=== PATIENT | male | born 1940 | race Caucasian/White ===

== ENCOUNTER → 2019-11-23 12:54 | Outpatient (BNVA) | payer MEDICARE, OTHER, SELFPAY | PROVIDERS: Family Provider Family Medicine; PCP Family Medicine; Visit Provider Family Medicine | DX: I11.0 Hypertensive heart disease with heart failure (principal); F41.1 Generalized anxiety disorder; E87.1 Hypo-osmolality and hyponatremia; R74.8 Abnormal levels of other serum enzymes | CPT/HCPCS: 80048 ==

== ENCOUNTER → 2019-12-22 11:56 | Outpatient (BNVA) | payer MEDICARE, OTHER, SELFPAY | PROVIDERS: Family Provider Family Medicine; PCP Family Medicine; Visit Provider Family Medicine | DX: E87.1 Hypo-osmolality and hyponatremia (principal); R74.8 Abnormal levels of other serum enzymes; I10 Essential (primary) hypertension; F41.1 Generalized anxiety disorder | CPT/HCPCS: 80048; 85025 ==

== ENCOUNTER → 2020-01-04 13:17 | Outpatient (BNVA) | payer MEDICARE, OTHER, SELFPAY | PROVIDERS: Family Provider Family Medicine; PCP Family Medicine; Visit Provider Urology | DX: C61 Malignant neoplasm of prostate (principal) | CPT/HCPCS: 81001; 84153 ==

== ENCOUNTER 2020-01-17 09:44 | Outpatient (CLI) | payer MEDICARE, OTHER, SELFPAY ==
--- NOTE | 2020-01-17 09:48 | USCV_ITS ---
BoykinSabino Age: 79 Gender: M : 1940 Exam Date: 01/17/2020 09:13 Ordering Phys: Gabriella Mike MD [email or web address]) Technologist: Machelle Way Exam Location: [facility] [place] Indication: AI BP: 150 / 82 HR: 63 Rhythm: Sinus Technical Quality: Good MEASUREMENTS (Male / Female) Normal Values 2D ECHO LV Diastolic Diameter PLAX 4.6 cm 4.2 - 5.9 / 3.9 - 5.3 cm LV Systolic Diameter PLAX 3.0 cm IVS Diastolic Thickness 0.9 cm 0.6 - 1.0 / 0.6 - 0.9 cm IVS Systolic Thickness 1.5 cm LVPW Diastolic Thickness 1.1 cm 0.6 - 1.0 / 0.6 - 0.9 cm LVPW Systolic Thickness 1.8 cm LVOT Diameter 2.0 cm LV Ejection Fraction 2D Teich 63.8 % LV Ejection Fraction MOD 2C 72.7 % LV Ejection Fraction 2C AL 73.7 % LA Diameter 3.1 cm LA Width 2.7 cm LA Height 4.6 cm RA Width 3.0 cm RA Height 3.7 cm M-MODE LV Diastolic Diameter MM 5.1 cm 4.2 - 5.9 / 3.9 - 5.3 cm LV Systolic Diameter MM 3.1 cm LV Ejection Fraction MM Teich 70.2 % IVS Diastolic Thickness MM 0.8 cm 0.6 - 1.0 / 0.6 - 0.9 cm IVS Systolic Thickness MM 1.3 cm LVPW Diastolic Thickness MM 0.8 cm 0.6 - 1.0 / 0.6 - 0.9 cm LVPW Systolic Thickness MM 1.8 cm RV Diastolic Diameter MM 2.1 cm Aortic Annulus Diameter 3.5 cm LA Ao Ratio MM 0.9 MV E Point Septal Separation 0.2 cm DOPPLER AV Peak Velocity 125.0 cm/s LVOT Peak Velocity 86.0 cm/s AV Area Cont Eq vti 2.4 cm squared AV Area Cont Eq pk 2.3 cm squared MV E' Velocity 7.0 cm/s TR Peak Velocity 232.6 cm/s TR Peak Gradient 21.6 mmHg TR Mean Velocity 190.8 cm/s TR Mean Gradient 15.6 mmHg TR Velocity Time Integral 91.4 cm TV Peak E Velocity 51.0 cm/s Right Atrial Pressure 3.0 mmHg Pulmonary Artery Systolic Pressu 24.6 mmHg PV Peak Velocity 54.0 cm/s FINDINGS Left Ventricle Normal left ventricular size, systolic function and wall thickness, with no regional wall motion abnormalities. Left ventricular ejection fraction is estimated at 70%. Normal diastolic function. Right Ventricle Normal right ventricular size and systolic function. Right ventricular systolic pressure 24.6 mmHg. Right Atrium Normal right atrial size. Right atrial pressure estimated at 3 mmHg. Left Atrium Normal left atrial size. Mitral Valve Structurally normal mitral valve. Mild to moderate mitral valve regurgitation. Aortic Valve Mildly thickened trileaflet aortic valve. No aortic valve stenosis. Moderate aortic valve regurgitation. Tricuspid Valve Structurally normal tricuspid valve. Trace tricuspid valve regurgitation. Pulmonic Valve Pulmonic valve not well visualized. Trace pulmonary valve regurgitation. Pericardium No pericardial effusion. Aorta Normal size aortic root and proximal ascending aorta. Plaque noted in ascending aorta. CONCLUSIONS 1. Normal left ventricular size, systolic function and wall thickness, with no regional wall motion abnormalities. Left ventricular ejection fraction is estimated at 70%. Normal diastolic function. 2. Normal right ventricular size and systolic function. 3. Right atrial pressure estimated at 3 mmHg. 4. Mild to moderate mitral valve regurgitation. 5. Moderate aortic valve regurgitation. 6. Pulmonary artery pressure estimated at 25 mmHg. 7. No prior similar studies to compare. Gabriella Mike MD (Electronically Signed) Final Date: 17 January 2020 16:35 S
== END 2020-01-17 09:45 | disposition home or self-care (01) ==
LOC: US 09:46
PROVIDERS: Family Provider Family Medicine; PCP Family Medicine; Visit Provider Internal Medicine Cardiovascular Disease
DX: M79.602 Pain in left arm (principal); R07.81 Pleurodynia
CPT/HCPCS: 93306; C8929

== ENCOUNTER → 2020-01-25 11:02 | Outpatient (BNVA) | payer MEDICARE, OTHER, SELFPAY | PROVIDERS: Family Provider Family Medicine; PCP Family Medicine; Referring Provider Internal Medicine; Visit Provider Internal Medicine | DX: R74.8 Abnormal levels of other serum enzymes (principal); E87.1 Hypo-osmolality and hyponatremia; C61 Malignant neoplasm of prostate | CPT/HCPCS: 80053; 80061; 82533; 82570; 83930; 83935; 84156; 84300; 84439; 84443 ==

== ENCOUNTER 2020-02-03 15:21 | Outpatient (CLI) | payer MEDICARE, OTHER, SELFPAY ==
--- NOTE | 2020-02-03 15:25 | US_ITS ---
WS: [id number] RENAL ULTRASOUND REASON FOR EXAM: CHRONIC KIDNEY DISEASE STAGE 3 TECHNIQUE: Grayscale and Doppler ultrasound examination of the kidneys. FINDINGS: Right kidney: Right kidney measures 9.1 cm x 6.0 cm x 4.8 cm. Cortex measured 1.15 cm. Normal echotex ture present. Left kidney: Left kidney measures 9.5 cm x 5.1 cm x 6.0 cm. Cortex measured 1.20. In the left kidney is a density suggesting a solid lesion measured 3.68 x 2.70 x 2.86 cm. The urinary bladder was not fully distended but showed no gross abnormalities. US/US renal BI* [id number] IMPRESSION: The left kidney suggests a questionable mass defect which appears to be solid t his could represent a hump on the kidney but follow-up's with CT with contrast recommended.
== END 2020-02-03 15:22 | disposition home or self-care (01) ==
LOC: US 15:21
PROVIDERS: Family Provider Family Medicine; PCP Family Medicine; Visit Provider Internal Medicine
DX: N18.3 Chronic kidney disease, stage 3 (moderate) (principal)
CPT/HCPCS: 76770

== ENCOUNTER 2020-03-21 09:27 | Outpatient (CLI) | payer MEDICARE, OTHER, SELFPAY ==
--- NOTE | 2020-03-21 09:39 | CT_ITS ---
WS: [id number] CT ABDOMEN PELVIS TECHNIQUE: Noncontrast CT of the abdomen and pelvis with coronal and sagittal reformatted images. CLINICAL INFORMATION: LEFT RENAL MASS VS HUMP COMPARISON: Renal ultrasound February 03, 2020 DLP: 706.[address] scans at [facility] use at least one of these dose optimization techniques: automat ed exposure control; mA and/or kV adjustment per patient size (includes targeted exams where dose is matched to clinical indication); or iterative reconstruction. FINDINGS: Mild cortical atrophy bilateral noncontrast kidneys. No visualized left renal mass. Slight lobulation upper pole left kidney. No renal mass considering lack of IV contrast. No hydronephrosis. Multiple low-attenuation lesions in the right and left hepatic lobe the largest in the right hepatic lobe measuring 4.3 x 3.4 cm consistent with hepatic cysts. Gallbladder is contracted but otherwise no rmal in appearance. Noncontrast spleen is normal. A few tiny splenules. Fatty atrophy of the pancreas . Small esophageal hiatal hernia. Mild thickening in the distal esophagus at the GE junction can be s een with esophagitis. Neoplasia not entirely excluded. Recommend further evaluation with endoscopy. L melvin bases are well aerated. Normal caliber abdominal aorta. Aortic calcification. Sigmoid diverticulosis. Urine distended bladder . Enlarged prostate with nodularity. Prostate measures 4.6 x 4.9 cm. No abdominal or pelvic lymphaden opathy. No inguinal lymphadenopathy. CT/CT abdomen pelvis wo con [id number] IMPRESSION: 1. No evidence of left renal mass. 2. Mild lobulation upper pole left kidney. No hydronephrosis in either kidney. Mild renal cortical atrophy. 3. Multiple hepatic cysts the largest in the right hepatic lobe measuring 3.4 x 4.3 CM. 4. Mild circumferential thickening at the GE junction with small esophageal hi atal hernia. This can be seen with esophagitis but neoplasia not excluded. Lawrence mmend endoscopy for further evaluation. 5. Normal caliber abdominal aorta. 6. Enlarged prostate. Recommend correlation PSA. 7. Sigmoid diverticulosis.
== END 2020-03-21 09:28 | disposition home or self-care (01) ==
LOC: RAD 09:30
PROVIDERS: Family Provider Family Medicine; PCP Family Medicine; Visit Provider Nurse Practitioner Family
DX: N28.89 Other specified disorders of kidney and ureter (principal); K76.89 Other specified diseases of liver; K44.9 Diaphragmatic hernia without obstruction or gangrene; N40.0 Benign prostatic hyperplasia without lower urinary tract symptoms; K57.30 Diverticulosis of large intestine without perforation or abscess without bleeding
CPT/HCPCS: 74176

== ENCOUNTER → 2020-05-08 10:15 | Outpatient (BNVA) | payer MEDICARE, OTHER, SELFPAY | PROVIDERS: Family Provider Family Medicine; PCP Family Medicine; Visit Provider Internal Medicine | DX: N18.3 Chronic kidney disease, stage 3 (moderate) (principal) | CPT/HCPCS: 80069; 82306; 82570; 84156; 85025 ==

== ENCOUNTER → 2020-05-21 10:18 | Outpatient (BNVA) | payer MEDICARE, OTHER, SELFPAY | PROVIDERS: Family Provider Family Medicine; PCP Family Medicine; Visit Provider Family Medicine | DX: I10 Essential (primary) hypertension (principal); E03.9 Hypothyroidism, unspecified; G25.0 Essential tremor; M19.90 Unspecified osteoarthritis, unspecified site; F41.1 Generalized anxiety disorder; R74.8 Abnormal levels of other serum enzymes; C61 Malignant neoplasm of prostate; E87.1 Hypo-osmolality and hyponatremia | CPT/HCPCS: 83935; 84300 ==

== ENCOUNTER → 2020-06-07 11:57 | Outpatient (BNVA) | payer MEDICARE, OTHER, SELFPAY | PROVIDERS: Family Provider Family Medicine; PCP Family Medicine; Referring Provider Nurse Practitioner Family; Visit Provider Nurse Practitioner Family | DX: N18.3 Chronic kidney disease, stage 3 (moderate) (principal) | CPT/HCPCS: 80048; 82533; 83930; 84300; 84439; 84443 ==

== ENCOUNTER → 2020-06-18 10:25 | Outpatient (BNVA) | payer MEDICARE, OTHER, SELFPAY | PROVIDERS: Family Provider Family Medicine; PCP Family Medicine; Visit Provider Internal Medicine | DX: N18.3 Chronic kidney disease, stage 3 (moderate) (principal) | CPT/HCPCS: 80048 ==

== ENCOUNTER → 2020-06-25 10:10 | Outpatient (BNVA) | payer MEDICARE, OTHER, SELFPAY | PROVIDERS: PCP Family Medicine; Referring Provider Internal Medicine; Visit Provider Internal Medicine | DX: N18.3 Chronic kidney disease, stage 3 (moderate) (principal) | CPT/HCPCS: 80048 ==

== ENCOUNTER → 2020-07-16 10:12 | Outpatient (BNVA) | payer MEDICARE, OTHER, SELFPAY | PROVIDERS: PCP Family Medicine; Referring Provider Internal Medicine; Visit Provider Internal Medicine | DX: N18.3 Chronic kidney disease, stage 3 (moderate) (principal) | CPT/HCPCS: 80048 ==

== ENCOUNTER → 2020-07-18 09:01 | Outpatient (BNVA) | payer MEDICARE, OTHER, SELFPAY | PROVIDERS: PCP Family Medicine; Visit Provider Urology | DX: C61 Malignant neoplasm of prostate (principal); N20.1 Calculus of ureter; N40.1 Benign prostatic hyperplasia with lower urinary tract symptoms | CPT/HCPCS: 81001; 84153 ==

== ENCOUNTER → 2020-10-16 11:05 | Outpatient (BNVA) | payer MEDICARE, OTHER, SELFPAY | PROVIDERS: Family Provider Family Medicine; PCP Family Medicine; Referring Provider Internal Medicine; Visit Provider Internal Medicine | DX: N18.30 Chronic kidney disease, stage 3 unspecified (principal); I10 Essential (primary) hypertension; E03.9 Hypothyroidism, unspecified; I25.10 Atherosclerotic heart disease of native coronary artery without angina pectoris | CPT/HCPCS: 80069; 82043; 82306; 82310; 83970; 85025 ==

== ENCOUNTER → 2020-11-04 17:00 | Outpatient (BNVA) | payer MEDICARE, OTHER, SELFPAY | PROVIDERS: Family Provider Family Medicine; PCP Family Medicine; Visit Provider Emergency Medicine | DX: Z20.828 Contact with and (suspected) exposure to other viral communicable diseases (principal) | CPT/HCPCS: 87635 ==

== ENCOUNTER → 2021-01-07 09:13 | Outpatient (BNVA) | payer MEDICARE, SELFPAY | PROVIDERS: Family Provider Family Medicine; PCP Family Medicine; Referring Provider Internal Medicine; Visit Provider Internal Medicine | DX: E03.9 Hypothyroidism, unspecified (principal); N18.31 Chronic kidney disease, stage 3a; Z79.899 Other long term (current) drug therapy | CPT/HCPCS: 80048; 83930; 83935; 84300; 84443 ==

== ENCOUNTER → 2021-01-16 10:20 | Outpatient (BNVA) | payer MEDICARE, SELFPAY | PROVIDERS: Family Provider Family Medicine; PCP Family Medicine; Visit Provider Urology | DX: N40.1 Benign prostatic hyperplasia with lower urinary tract symptoms (principal); C61 Malignant neoplasm of prostate | CPT/HCPCS: 81003; 84153 ==

== ENCOUNTER → 2021-02-13 10:15 | Outpatient (BNVA) | payer MEDICARE, SELFPAY | PROVIDERS: Family Provider Family Medicine; PCP Family Medicine; Visit Provider Family Medicine | DX: L25.9 Unspecified contact dermatitis, unspecified cause (principal); N18.30 Chronic kidney disease, stage 3 unspecified | CPT/HCPCS: 80053; 85025; 85651; 86038; 86140 ==

== ENCOUNTER → 2021-04-29 08:50 | Outpatient (BNVA) | payer MEDICARE, SELFPAY | PROVIDERS: Family Provider Family Medicine; PCP Family Medicine; Referring Provider Surgery; Visit Provider Surgery | DX: R13.10 Dysphagia, unspecified (principal); Z20.822 Contact with and (suspected) exposure to COVID-19 | CPT/HCPCS: 87635 ==

== ENCOUNTER 2021-05-02 08:17 | Day surgery (SDC) | payer MEDICARE, SELFPAY ==
[2021-04-30 14:31] VITALS: BMI 25.8
--- NOTE | 2021-05-02 08:48 | ANES.PREANE2 ---
Pre-Anesthetic Assessment Pre-Anesthetic Assessment: Height/Weight: Height 1.78 m Weight 81.647 kg Preop Diagnosis: upper gi symptoms Proposed Procedure: Operation Date: 05/02/21 09:30 Proposed Procedures p EGD with baloon dialation possible bougie [id number] r13.10(Not Applicable) - Burton Pringle MD Was Beta Sienna taken within 24 hours: Yes Was Clonidine taken within 24 hours: N/A Social: Social History: No alcohol and No tobacco Exam: Pre-Anes Outpt Exam: alert, oriented x 3 and regular rate & rhythm Airway: Submandibular: WNL Cervical ROM: WNL MP: 2 Dentition: False Pulmonary: Pulmonary: COPD and Sleep apnea CV/HEM: CV/HEM: CAD and HTN Comments: AI GI: GI: GERD Neuropsych: Neuropsych: Anxiety Anesthetic Plan: ASA status: 3 Anesthesia: MAC Risk of > 500 ml blood loss (7ml/kg in children): No PFSH Anesthesia PFSH: Medical History Aortic regurgitation Arthritis BPH loc w urin obs/LUTS CAD (coronary artery disease) STATIN intolerance Chronic kidney disease, stage 3 (moderate) Constipation, chronic COPD (chronic obstructive pulmonary disease) COVID-19 Essential tremor MAURICIO (generalized anxiety disorder) Off fluoxetine due to low Na Hyponatremia Hypothyroidism DIAN (obstructive sleep apnea) Prostate cancer Restless leg syndrome Statin intolerance Itchy RASH Surgical History History of colonoscopy 2016 S/P cataract surgery S/P inguinal hernia repair S/P partial thyroidectomy S/P rotator cuff repair S/P sinus surgery Family History Father Cancer PROSTATE Mother Chronic kidney disease (CKD) Cirrhosis of liver Heart failure Social History Smoking and tobacco status: never smoked Second hand smoke exposure: No Smoking risk assessment/counseling performed?: No Alcohol intake: never Desire information about alcohol rehabilitation?: No Counseling given: No Desire information about substance/drug rehabilitation?: No Counseling given: No Caregiver/support person: Yes Lives independently: No Household members: spouse Marital status: Current occupational status: retired History of recent travel: No Current gender identity: Male Data Anesthesia Cardiac Studies: No Data to Display
--- NOTE | 2021-05-02 09:31 | W.PM.OPSUD ---
Surgery/Procedure H&P Update DATE OF PROCEDURE: May 02, 2021 DATE H&P PERFORMED: 04/26/21 H&P UPDATE INFORMATION: I have reviewed H&P completed within last 30 days, I have examined patient prior to procedure and No changes to prior documentation PREOP DIAGNOSIS: upper gi symptoms PLANNED PROCEDURE: Operation Date: 05/02/21 09:30 Proposed Procedures p EGD with baloon dialation possible marsha [id number] r13.10(Not Applicable) - Burton Pringle MD
[2021-05-02 09:37] VITALS: BP 148/85; PULSE 70; RESP 18; TEMP 36.9; O2SAT 98
[2021-05-02] MEDS: sodium chloride 0.9% 1,000 ML 30 ML IV (09:38)
[2021-05-02 09:54] VITALS: BP 104/60; PULSE 70; RESP 16; TEMP 36.3; O2SAT 94
[2021-05-02 10:05] VITALS: BP 113/69; PULSE 65; RESP 16; O2SAT 98
--- NOTE | 2021-05-02 13:39 | ANE.PACU2 ---
Inpatient post-anesthesia follow up: Airway intact: Yes Vital signs: Temperature 97.4 F Pulse Rate 65 Respiratory Rate 16 Blood Pressure 113/69 Pulse Oximetry 98 Oxygen Delivery Me thod Room Air Oxygen Flow Rate Fraction of Inspir ed Oxygen Hydration adequate: Yes Nausea and vomiting: No Pain level: 1 Mental status: Baseline
== END 2021-05-02 10:32 | disposition home or self-care (01) ==
PROVIDERS: PCP Family Medicine; Visit Provider Surgery
DX: R13.10 Dysphagia, unspecified (principal); K22.2 Esophageal obstruction; K44.9 Diaphragmatic hernia without obstruction or gangrene; J44.9 Chronic obstructive pulmonary disease, unspecified; I12.9 Hypertensive chronic kidney disease with stage 1 through stage 4 chronic kidney disease, or unspecified chronic kidney disease; N18.30 Chronic kidney disease, stage 3 unspecified; I25.10 Atherosclerotic heart disease of native coronary artery without angina pectoris; F41.9 Anxiety disorder, unspecified; M19.90 Unspecified osteoarthritis, unspecified site; N40.1 Benign prostatic hyperplasia with lower urinary tract symptoms; N13.8 Other obstructive and reflux uropathy; Z86.16 Personal history of COVID-19; E03.9 Hypothyroidism, unspecified; G47.33 Obstructive sleep apnea (adult) (pediatric); Z85.46 Personal history of malignant neoplasm of prostate
CPT/HCPCS: 43195; 43239; 88305; 96360; J2704; J7030

== ENCOUNTER → 2021-06-27 11:53 | Outpatient (BNVA) | payer MEDICARE, SELFPAY | PROVIDERS: PCP Family Medicine; Visit Provider Family Medicine | DX: I10 Essential (primary) hypertension (principal); I50.9 Heart failure, unspecified; I25.10 Atherosclerotic heart disease of native coronary artery without angina pectoris | CPT/HCPCS: 80053; 80061; 83735; 83880; 85025 ==

== ENCOUNTER → 2021-07-23 08:36 | Outpatient (BNVA) | payer MEDICARE, SELFPAY | PROVIDERS: PCP Family Medicine; Visit Provider Urology | DX: N40.1 Benign prostatic hyperplasia with lower urinary tract symptoms (principal); C61 Malignant neoplasm of prostate; Z12.5 Encounter for screening for malignant neoplasm of prostate | CPT/HCPCS: 81003; G0103 ==

== ENCOUNTER → 2021-07-25 11:04 | Outpatient (BNVA) | payer MEDICARE, SELFPAY | PROVIDERS: PCP Family Medicine; Visit Provider Family Medicine | DX: I50.9 Heart failure, unspecified (principal); I10 Essential (primary) hypertension; E03.9 Hypothyroidism, unspecified; N18.31 Chronic kidney disease, stage 3a; S90.222A Contusion of left lesser toe(s) with damage to nail, initial encounter; B35.1 Tinea unguium | CPT/HCPCS: 80048; 84443 ==

== ENCOUNTER → 2021-08-20 10:48 | Outpatient (BNVA) | payer MEDICARE, SELFPAY | PROVIDERS: PCP Family Medicine; Visit Provider Internal Medicine Cardiovascular Disease | DX: I10 Essential (primary) hypertension (principal); I50.9 Heart failure, unspecified; I35.1 Nonrheumatic aortic (valve) insufficiency; R07.89 Other chest pain; I25.10 Atherosclerotic heart disease of native coronary artery without angina pectoris; E87.1 Hypo-osmolality and hyponatremia; G47.33 Obstructive sleep apnea (adult) (pediatric) | CPT/HCPCS: 80048; 83735; 83880 ==

== ENCOUNTER → 2021-09-18 11:03 | Outpatient (BNVA) | payer MEDICARE, SELFPAY | PROVIDERS: PCP Family Medicine; Visit Provider Family Medicine | DX: N18.31 Chronic kidney disease, stage 3a (principal); J44.9 Chronic obstructive pulmonary disease, unspecified | CPT/HCPCS: 80053; 85025 ==

== ENCOUNTER 2021-10-08 08:09 | Outpatient (CLI) | payer MEDICARE, SELFPAY ==
[2021-10-08 08:32] VITALS: BMI 28.8
--- NOTE | 2021-10-08 08:36 | ECG_ITS ---
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 Interpretive Statements NAME OF STUDY: LEXISCAN SESTAMIBI STRESS TEST INDICATION: Chest Pain, congestive heart failure PROCEDURE: At the baseline, the blood pressure was 166/92 mmHg, oxygen saturation 96% with a heart rate of 71 bpm. The electrocardiogram showed normal sinus rhythm, baseline artifact. Nonspecific ST changes. The Lexiscan was infused over a period of 20 seconds. A total of 0.4 milligrams of Lexiscan was infused. The stress phase was continued for a total of 5 minutes. Heart rate at the end of the stress phase was 81 bpm, oxygen saturation 98% with a blood pressure of 126/85 mmHg. The EKG at the peak infusion revealed sinus rhythm with no significant ST-T wave changes. Sestamibi was injected 20 seconds after the Lexiscan infusion. The study was terminated due to protocol completion. Patient developed shortness of breath during Lexiscan infusion that resolved by discharge. Blood pressure at the end of the recovery phase was 143/88 mmHg, oxygen saturation 98% with a heart rate of 80 beats per minute. CONCLUSION: 1. No significant EKG changes with the LexiScan infusion. 2. No LexiScan induced chest pain or cardiac arrhythmia. 3. Normal blood pressure and heart rate response. 4. Sestamibi/sestamibi perfusion scan pending; see separate report. SEND RESULTS TO DR. ELLIE SERNA Electronically Signed On 10-14-2021 13:31:09 REHABILITATION SERVICES COUNSELOR by Gabriella Mike M.D. [id number]
--- NOTE | 2021-10-08 08:37 | NMCV_ITS ---
NM tanna perf SPECT r/s* [id number] Sabino Boykin Age: 80 Gender: M : 1940 Exam Date: 10/08/2021 08:37 Ordering Phys: Gabriella Mike MD ([email or web address]) Technologist: JF Garcia Exam Location: [facility] Indications: CHEST PAIN STRESS TEST Please see separate stress test report in [facility] for full findings IMAGE PROTOCOL Rest/Stress 1 Lexiscan Day Radiopharmaceutical Dose (mCi) Administration Site Administered by Rest: Tc-99m 10.4 IV JF Garcia Sestamibi Stress:Tc-99m 32.6 IV JF Ayala Sestamibi Rest: 08-Oct-2021 60 Discovery 630 Stress: 08-Oct-2021 30 Discovery 630 0.4mg Lexiscan. Images obtained in supine and prone position. SPECT RESULTS Technical Quality: Excellent Raw Data Analysis: Normal Image Corrections: No attenuation or motion correction applied Summed Stress Score: 8 Summed Rest Score: 4 Summed Difference Score: 4 PERFUSION FINDINGS Small sized perfusion abnormality of mid to apical inferior and mid to apical infero-lateral cerna on supine stress images with improved tracer uptake on prone stress images. FUNCTIONAL RESULTS (calculated via Gated SPECT) Stress Image LV EF (%): 74 Stress EDV (mL):77 TID: 1 Stress ESV (mL):20 FUNCTIONAL FINDINGS: The left ventricle is normal in size. Transient Ischemia Dilatation of 1. There is normal left ventricular systolic function. The left ventricular ejection fraction is normal with a value of 74%. There is normal left ventricular wall thickening with no regional wall motion abnormality. Normal end diastolic and end systolic volumes. IMPRESSIONS 1. Small sized perfusion abnormality of mid to apical inferior and mid to apical infero-lateral cerna with improved tracer uptake on prone stress images. 2. This may represent attenuation artifact or old myocardial infaction in right coronary artery territory with minimal marty-infarct ischemia. 3. Overall left ventricular systolic function is normal without regional wall motion abnormalities, LVEF=74%. 4. No prior similar studies to compare. Gabriella Mike MD (Electronically Signed) Final Date: 12 October 2021 17:16 S
[2021-10-08] MEDS: regadenoson 0.4 Mg/5 ml Syringe IVP (10:35)
[2021-10-08 10:49] VITALS: BP 143/88; PULSE 80
== END 2021-10-08 08:10 | disposition home or self-care (01) ==
LOC: CDL 08:11
PROVIDERS: PCP Family Medicine; Visit Provider Internal Medicine Cardiovascular Disease
DX: R07.9 Chest pain, unspecified (principal); I50.9 Heart failure, unspecified
CPT/HCPCS: 78452; 93017; A9500; J2785

== ENCOUNTER → 2021-12-24 10:06 | Outpatient (BNVA) | payer MEDICARE, SELFPAY | PROVIDERS: PCP Family Medicine; Visit Provider Internal Medicine Cardiovascular Disease | DX: R06.02 Shortness of breath (principal); R07.9 Chest pain, unspecified; Z20.822 Contact with and (suspected) exposure to COVID-19; Z01.812 Encounter for preprocedural laboratory examination | CPT/HCPCS: 80048; 85025; 85610; 87635 ==

== ENCOUNTER 2021-12-27 07:38 | Outpatient (CLI) | payer MEDICARE, SELFPAY ==
[2021-12-27] VITALS (11 sets, daily range): BP systolic 105–185; BP diastolic 64–88; PULSE 60–69; RESP 12–21; TEMP 36.7; O2SAT 96–98; BMI 28.8
--- NOTE | 2021-12-27 07:30 | XACV_ITS ---
Exam Room: 2 Ht: 173 cm Wt: 87 kg BSA: 2.06 m2 Gender: Male : 1940 Exam Priority: Routine Procedure(s): Procedure Description: Diagnostic procedure Procedure Description: Coronary Angiography Procedure Description: Pressure Wire Diagnostic Cath Status: Elective Diagnostic Findings * Left Main has no disease. * Circumflex has no disease. * Right Coronary Artery has no disease. * Mid Left Anterior Descending: obstructive 70% stenosis, SARAH: 3 flow. * Coronary angiography shows right dominance. Conclusions 1. I 2. FR: After equalizing the distal and proximal pressure of 3. I 4. FR wire proximal to the lesion, mid L 5. AD 6. lesion was crossed with 7. I 8. FR wire 9. I 10. FR was recorded as 0.92, which is not significant 11. . 12. There is obstructive coronary artery disease with one vessel disease. Recommendations * Continue current medical management and risk factor modification. Diagnostic RX Recommendation: medical therapy and/or counseling Pressures Phase:Rest AO : 103 / 67 ( 85 ) @ 7:03:00 AM 101 / 51 ( 68 ) @ 7:21:00 AM 113 / 61 ( 84 ) @ 7:22:00 AM 119 / 61 ( 86 ) @ 7:27:00 AM Clinical Evaluation EBL: 5mL-10mL Procedural Details Procedure Consent Obtained. Pre-Procedure Time Out. Identified patient by full name and date of as verbalized by the patient/guarantor. Does the consent match the physician's order: Yes. Accurate & Complete Informed Consent: Yes. Inpatient/Outpatient History & Physical on Chart: Yes. Visualize and Verify Site with Patient/Guarantor: N/A. Relevant Radiology Images available: N/A. Pre-op teaching completed and patient verbalized understanding. The risks, benefits, and alternatives of sedation and/or procedure were discussed by physician. The patient agrees to continue. Procedure started. [facility] Clinical Fraility Score: 4: Vulnerable. Glove Turner And Former Indications: Worsening Angina. Chest Pain Symptom Assessment: Atypical Angina. Correct patient, site and procedure confirmed by cath team. Current diagnosis: Chest Pain. PERRLA. Strong, equal hand public policy coordinator bilaterally. Lungs clear x 5 lobes. IV Site on Arrival: 20 gauge in the right anticubital. IV Fluids: 0.9% NaCl at KVO. 0 mL infused prior to landscaping and groundskeeping laborer. Pre Procedural Pulses: bilateral dorsalis pedis was 2+. Pre Procedural Pulses: bilateral posterior tibial was 1+. Pre Procedural Pulses: bilateral radial was 3+. Oxygen started at 2liters/min via nasal canula. bilateral groins was prepped with chloroprep then draped in the usual sterile fashion. Physician notified. Baseline sample Acquired. HR: 72 BPM. Admit Source: Out Patient. Physician arrived. Physician scrubbed in. Immediate Pre-Procedure Time Out. Correct Patient: Yes; Correct Procedure: Yes; Correct Site: Yes; Correct Patient Position: Yes; Correct Supplies: Yes; Dried Flammable Prep: N/A; Blood Products Available: N/A;. Lidocaine 1% infiltrated to the right groin. Arterial access obtained with micropuncture set. A 5 south korean JL4 catheter in over wire. Multiple views taken of left coronary artery. Catheter removed over the standard wire. A 5 south korean JR4 catheter in over wire. Multiple views taken of right coronary artery. Xuan Sanchez RN was relieved by RT Yovani(R) as monitoring person. Multiple views taken of right coronary artery. Catheter removed over the standard wire. 6 south korean JL 3.5 guide catheter was inserted over the wire. Multiple views taken of left coronary artery. IFR guidewire was advanced through the guide catheter to lesion in the mid LAD. Results: 0.92. Wire out. Results checked. Guide catheter out. Lidocaine 1% infiltrated to the right groin. A Angio-Seal VIP (St. Bal) was successful obtaining hemostatsis at the Right Femoral artery insertion site. Post Procedure: Pulses reassessed and unchanged. PERRLA. Strong, equal hand public policy coordinator bilaterally. No VTE prophylaxis required. Medication's Wasted: Lidocaine 1% = 4 mL. Medication's Wasted: Heparin = 1000 units. Total IV fluids: 553 mL. Contrast type used: Visipaque 320 mgI/mL, 500 mL bottle. Complications: None. Estimated blood loss: 5mL-10mL. Responsiveness - Normal response to verbal stimuli; alert and oriented, PERRLA. Airway - Unaffected, no intervention required; spontaneous ventilation. Circulation: W/N/L, pulses unchanged. Nausea/Vomiting: No. Procedure completed. Vital chart was stopped. Patient transferred by stretcher to CPRU. Access Site Site: Right Femoral artery Sheath Size: 6 Fr Hemostasis Method: Angio-Seal VIP (St. Bal) Hemostasis Success: Successful Procedure Medications Start: 8:45 AM Stop: 8:45 AM Medication: Versed Amount: 1 mg Route: I.V. Start: 8:45 AM Stop: 8:45 AM Medication: Fentanyl Amount: 25 mcg Route: I.V. Start: 8:45 AM Stop: 8:45 AM Medication: 0.9% Saline Amount: 500 ml Route: I.V. bolus Start: 8:47 AM Stop: 8:47 AM Medication: Versed Amount: 1 mg Route: I.V. Start: 8:47 AM Stop: 8:47 AM Medication: Fentanyl Amount: 25 mcg Route: I.V. Start: 9:19 AM Stop: 9:19 AM Medication: Fentanyl Amount: 25 mcg Route: I.V. Start: 9:21 AM Stop: 9:21 AM Medication: Heparin Amount: 5000 units Route: I.V. Start: 9:29 AM Stop: 9:29 AM Medication: Fentanyl Amount: 25 mcg Route: I.V. I, the attending physician, have reviewed and verified all procedure medications. Yes, all medications given per verbal order History/Risk Factors Hypertension: Yes Dyslipidemia: Yes Peripheral Arterial Disease (PAD): No Myocardial Infarction (MA): No Obesity: No Renal Disease: Yes Tobacco Use: Never Prior Interventions PCI: No CABG: No Valve Surgery: No Report Signatures Finalized by Patrick Sim MD on 01/04/2022 03:08 PM
[2021-12-27] MEDS: diphenhydrAMINE 50 mg Capsule PO (08:05)
--- NOTE | 2021-12-27 08:48 | W.PM.OPSUD ---
Surgery/Procedure H&P Update DATE OF PROCEDURE: December 27, 2021 DATE H&P PERFORMED: 12/27/21 CHANGES TO PREVIOUS DOCUMENTATION: None PREOP DIAGNOSIS: upper gi symptoms PRIMARY INDICATION FOR PROCEDURE: Worsening of chest pressure with shortness of breath despite of optimization of medicine, abnormal stress test PLANNED PROCEDURE: Operation Date: 12/27/21 08:30 Proposed Procedures p Cardiac Catheterization(Left) - Patrick Sim MD PATIENT REASSESSED PRIOR TO SEDATION, WITH NO CHANGE NOTED: Yes PHYSICAL EXAM: alert, oriented x 3, clear to auscultation bilaterally and operative site marked ADDITIONAL INFORMATION: All risk benefit and alternative for the procedure has been explained to the patient. He understand risk for stroke major minor bleed urgent emergent bypass surgery. He is a candidate for DAPT.
--- NOTE | 2021-12-27 09:57 | W.PM.OPSFHP ---
Same Day Surgery H&P Indication for Procedure/HPI DATE OF PROCEDURE: December 27, 2021 CHIEF COMPLAINT/INDICATIONFOR SURGICAL PROCEDURE: Worsening of angina with chest pressure and abnormal stress test PREOP DIAGNOSIS: upper gi symptoms PLANNED PROCEDURE: Operation Date: 12/27/21 08:30 Proposed Procedures p Cardiac Catheterization(Left) - Patrick Sim MD 81-year-old male patient of Dr. Mike past medical history significant for chronic kidney disease for worsening of chest pressure shortness of breath prior history of nonobstructive coronary artery disease and abnormal stress test despite of optimization of medicine continues to have symptoms therefore he was recommended for angiogram. Patient has baseline chronic kidney disease stage III, he has been given IV fluid 500 mL before the procedure. Our plan is to minimize contrast and continue IV fluid. Patient understand risk for contrast-induced nephropathy stroke major minor bleed urgent emergent bypass surgery. He would like to proceed with it. Medications/Allergies* Home Medications Medication Instructions Recorded Confirmed Type fluticasone propionate 50 1 spray INTRANASAL BID 11/23/19 12/27/21 History mcg/actuation nasal spray,suspension (Allergy Relief (fluticasone)) lactobacillus combination no.8 3 3,000 mmu cells PO DAILY 01/04/20 12/27/21 History billion cell capsule (Adult Probiotic) [facility] 1 tab PO DAILY 02/22/21 12/27/21 History Allergies/Adverse Reactions Allergy/AdvReac Type Severity Reaction Status Date / Time hydrochlorothiazide Allergy Unknown Verified 12/27/21 08:00 lisinopril Allergy Unknown Verified 12/27/21 08:00 Penicillins Allergy Unknown Verified 12/27/21 08:00 Current Medications: Generic Name Dose Route Start Last Admin Trade Name Freq PRN Reason Stop Dose Admin Sodium Chloride 1,000 mls @ 50 mls/hr 12/27/21 07:30 12/27/21 08:06 Sodium Chloride 0.9% IV 12/28/21 03:29 Not Given .Q20H ONE Pertinent History/Comorbid Conditions* Medical History (Updated 11/21/21 @ 14:48 by Gabriella Mike MD) Abnormal nuclear stress test Aortic regurgitation Arthritis BPH loc w urin obs/LUTS CAD (coronary artery disease) STATIN intolerance Chronic kidney disease, stage 3 (moderate) We will refer to nephrology if worsens. Constipation, chronic COPD (chronic obstructive pulmonary disease) COVID-19 Esophageal stricture Essential tremor MAURICIO (generalized anxiety disorder) Off fluoxetine due to low Na Hyponatremia Hypothyroidism DIAN (obstructive sleep apnea) Prostate cancer Restless leg syndrome Statin intolerance Itchy RASH Surgical History (Updated 05/02/21 @ 09:59 by Burton Pringle MD) H/O esophagogastroduodenoscopy (05/02/21) History of colonoscopy 2015 S/P cataract surgery S/P dilatation of esophageal stricture (05/02/21) S/P inguinal hernia repair S/P partial thyroidectomy S/P rotator cuff repair S/P sinus surgery Family History (Updated 11/23/19 @ 10:15 by Hailey John LPN) Father Heart failure Mother Cirrhosis of liver Mother Chronic kidney disease (CKD) Mother Cancer Father PROSTATE Social History Smoking and tobacco status: never smoked Second hand smoke exposure: No Smoking risk assessment/counseling performed?: No Alcohol intake: never Desire information about alcohol rehabilitation?: No Counseling given: No Desire information about substance/drug rehabilitation?: No Counseling given: No Caregiver/support person: Yes Lives independently: No Household members: spouse Marital status: Current occupational status: retired History of recent travel: No Current gender identity: Male Pertinent Exam Findings alert, oriented x 3, clear to auscultation bilaterally and operative site marked Recommendations Surgery/Procedure today Other Plans: We will proceed with coronary angiogram Coding Level of Care Code New 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
--- NOTE | 2021-12-27 10:09 | SUR.PHASEII ---
POST CATH NOTE Received patient from cardiac track repair laborer- status post cardiac catheterization via the right femoral approach. Right groin site angio sealed- no hematoma formation/bleeding noted. Site covered with bioclusives and 4/4's. Verbal post cath instructions went over with patient/spouse and they understood teaching. MD in to discuss findings- no questions at this time. Plan to discharge later today. Call light in reach- informed to call for needs.
--- NOTE | 2021-12-27 10:20 | SUR.PHASEII ---
IV NS AT 100 ML/HR PER MD. INFUSING ORDERED.
== END 2021-12-27 13:36 | disposition home or self-care (01) ==
PROVIDERS: PCP Family Medicine; Visit Provider Internal Medicine Cardiovascular Disease
DX: I25.10 Atherosclerotic heart disease of native coronary artery without angina pectoris (principal); R94.39 Abnormal result of other cardiovascular function study; E78.5 Hyperlipidemia, unspecified; I12.9 Hypertensive chronic kidney disease with stage 1 through stage 4 chronic kidney disease, or unspecified chronic kidney disease; N18.30 Chronic kidney disease, stage 3 unspecified; M19.90 Unspecified osteoarthritis, unspecified site; N40.1 Benign prostatic hyperplasia with lower urinary tract symptoms; N13.8 Other obstructive and reflux uropathy; J44.9 Chronic obstructive pulmonary disease, unspecified; Z86.16 Personal history of COVID-19; E03.9 Hypothyroidism, unspecified; G47.33 Obstructive sleep apnea (adult) (pediatric); Z85.46 Personal history of malignant neoplasm of prostate
CPT/HCPCS: 36415; 93454; 93571; C1760; C1769; C1887; C1894; J1644; J2250; J3010; J3490; J7030; Q0163; Q9967

== ENCOUNTER 2021-12-30 13:55 | Outpatient (CLI) | payer MEDICARE, SELFPAY ==
[2021-12-30 15:09] LABS: Anion Gap 16.4 (5-19); Blood Urea Nitrogen 21 mg/dL (8-23); Calcium 8.9 mg/dL (8.5-10.5); Carbon Dioxide 27 mmol/L (22-29); Chloride 100 mmol/L (98-107); Glucose 98 mg/dL (65-115); Osmolality Calculated 291 mOsm/kg (285-295); Potassium 4.4 mmol/L (3.5-5.1); Sodium 139 mmol/L (136-145)
== END 2021-12-30 13:56 | disposition home or self-care (01) ==
PROVIDERS: PCP Family Medicine; Visit Provider Internal Medicine Cardiovascular Disease
DX: I25.10 Atherosclerotic heart disease of native coronary artery without angina pectoris (principal)
CPT/HCPCS: 36415; 80048

== ENCOUNTER 2022-01-02 09:13 | Outpatient (CLI) | payer MEDICARE, SELFPAY ==
--- NOTE | 2022-01-02 | USCV_ITS ---
BoykinSabino Age: 81 Gender: M : 1940 Exam Date: 01/02/2022 09:36 Ordering Phys: Gabriella Mike MD ([email or web address]) Technologist: MERISSA [place] [facility] [place]: Heart Failure BP: 148 / 70 HR: 66 Rhythm: Sinus Technical Quality: Adequate MEASUREMENTS (Male / Female) Normal Values 2D ECHO LV Diastolic Diameter PLAX 4.3 cm 4.2 - 5.9 / 3.9 - 5.3 cm LV Systolic Diameter PLAX 2.5 cm IVS Diastolic Thickness 0.9 cm 0.6 - 1.0 / 0.6 - 0.9 cm IVS Systolic Thickness 1.3 cm LVPW Diastolic Thickness 1.4 cm 0.6 - 1.0 / 0.6 - 0.9 cm LVPW Systolic Thickness 1.1 cm RV Chamber Size 2.5 cm LVOT Diameter 2.0 cm LV Ejection Fraction 2D Teich 72.3 % LV Ejection Fraction MOD 2C 80.3 % LV Ejection Fraction 2C AL 80.3 % LA Diameter 2.9 cm LA Width 2.8 cm LA Height 3.9 cm RA Width 1.8 cm RA Height 4.3 cm Aorta at Sinotubular Diameter 3.0 cm M-MODE Aortic Annulus Diameter 2.9 cm LA Ao Ratio MM 1.0 MV E Point Septal Separation 0.4 cm DOPPLER AV Peak Velocity 109.3 cm/s LVOT Peak Velocity 92.0 cm/s AV Area Cont Eq vti 2.7 cm squared AV Area Cont Eq pk 2.7 cm squared MV Area PHT 4.5 cm squared Mitral E to A Ratio 1.0 MV E' Velocity 38.5 cm/s Mitral E to MV E' Ratio 10.8 Mitral E to LV E' Lateral Ratio 10.4 Mitral E to LV E' Septal Ratio 11.1 TR Peak Velocity 213.0 cm/s TR Peak Gradient 18.1 mmHg TV Peak E Velocity 53.0 cm/s Right Atrial Pressure 3.0 mmHg Pulmonary Artery Systolic Pressu 21.1 mmHg PV Peak Velocity 131.0 cm/s RV Acceleration Time 0.1 s RV Ejection Time 0.3 s RV AcT/ET 0.3 FINDINGS Left Ventricle Normal left ventricular size, systolic function and wall thicknes. Left ventricular ejection fraction is estimated at 65 %. There is mild hypokinesis of mid anteroseptal, apical septal, mid to apical anterior cerna. Normal diastolic function. Right Ventricle Normal right ventricular size and systolic function. Right ventricular systolic pressure 21.1 mmHg. Right Atrium Normal right atrial size. Right atrial pressure estimated at 3 mmHg. Left Atrium Normal left atrial size. Mitral Valve Structurally normal mitral valve. No mitral valve stenosis. Trace mitral valve regurgitation. Aortic Valve Structurally normal trileaflet aortic valve. No aortic valve stenosis. Trace aortic valve regurgitation. Tricuspid Valve Structurally normal tricuspid valve. No tricuspid valve stenosis. Trace to mild tricuspid valve regurgitation. Pulmonic Valve Structurally normal pulmonic valve. No pulmonary valve stenosis. Trace pulmonary valve regurgitation. Pericardium No pericardial effusion. Aorta Normal size aortic root and proximal ascending aorta. Normal- sized inferior vena cava with normal respiratory variation. CONCLUSIONS 1. Normal left ventricular size, systolic function and wall thicknes. Left ventricular ejection fraction is estimated at 65 %. There is mild hypokinesis of mid anteroseptal, apical septal, mid to apical anterior cerna. Normal diastolic function. 2. Normal right ventricular size and systolic function. 3. Trace aortic valve regurgitation. 4. Normal pulmonary artery pressure. 5. When compared to previous echocardiogram dated 01/17/2020, there seems to be new regional wall motion abnormality. Gabriella Mike MD (Electronically Signed) Final Date: 07 January 2022 17:35 S
[2022-01-02] MEDS: perflutren protein-a microsphr 0.22 mg/mL SDV 3 mL IV (10:30)
== END 2022-01-02 09:14 | disposition home or self-care (01) ==
LOC: RAD 09:15
PROVIDERS: PCP Family Medicine; Visit Provider Internal Medicine Cardiovascular Disease
DX: I50.9 Heart failure, unspecified (principal); I35.1 Nonrheumatic aortic (valve) insufficiency
CPT/HCPCS: C8929

== ENCOUNTER → 2022-01-06 11:30 | Outpatient (BNVA) | payer MEDICARE, SELFPAY | PROVIDERS: PCP Family Medicine; Visit Provider Nurse Practitioner Family | DX: I25.10 Atherosclerotic heart disease of native coronary artery without angina pectoris (principal) | CPT/HCPCS: 80048 ==

== ENCOUNTER → 2022-01-07 10:49 | Outpatient (BNVA) | payer MEDICARE, SELFPAY | PROVIDERS: PCP Family Medicine; Visit Provider Family Medicine | DX: I12.9 Hypertensive chronic kidney disease with stage 1 through stage 4 chronic kidney disease, or unspecified chronic kidney disease (principal); N18.31 Chronic kidney disease, stage 3a; R06.02 Shortness of breath; F41.1 Generalized anxiety disorder; I50.9 Heart failure, unspecified; E03.9 Hypothyroidism, unspecified; M19.90 Unspecified osteoarthritis, unspecified site; I25.10 Atherosclerotic heart disease of native coronary artery without angina pectoris; G25.0 Essential tremor; K11.20 Sialoadenitis, unspecified | CPT/HCPCS: 80069; 82043; 82310; 83970; 85025 ==

== ENCOUNTER → 2022-02-11 10:56 | Outpatient (BNVA) | payer MEDICARE, SELFPAY | PROVIDERS: PCP Family Medicine; Visit Provider Internal Medicine Cardiovascular Disease | DX: I25.10 Atherosclerotic heart disease of native coronary artery without angina pectoris (principal); I11.0 Hypertensive heart disease with heart failure; I50.9 Heart failure, unspecified; I35.1 Nonrheumatic aortic (valve) insufficiency; G47.33 Obstructive sleep apnea (adult) (pediatric) | CPT/HCPCS: 99214 ==

== ENCOUNTER 2022-02-20 13:33 | Outpatient (CLI) | payer MEDICARE, SELFPAY ==
[2022-02-20 14:17] LABS: Anion Gap 13.5 (5-19); Blood Urea Nitrogen 28 mg/dL (8-23); Calcium 9.5 mg/dL (8.5-10.5); Carbon Dioxide 29 mmol/L (22-29); Chloride 98 mmol/L (98-107); Glucose 93 mg/dL (65-115); Magnesium 2.1 mg/dL (1.7-2.3); NT Pro B Type Natriuretic Pept 79 pg/mL (0-450); Osmolality Calculated 289 mOsm/kg (285-295); Potassium 3.5 mmol/L (3.5-5.1); Sodium 137 mmol/L (136-145)
== END 2022-02-20 13:34 | disposition home or self-care (01) ==
PROVIDERS: PCP Family Medicine; Visit Provider Internal Medicine Cardiovascular Disease
DX: I10 Essential (primary) hypertension (principal); I25.10 Atherosclerotic heart disease of native coronary artery without angina pectoris; I50.9 Heart failure, unspecified
CPT/HCPCS: 36415; 80048; 83735; 83880

== ENCOUNTER 2022-03-05 10:57 | Outpatient (CLI) | payer MEDICARE, SELFPAY ==
--- NOTE | 2022-03-05 11:45 | US_ITS ---
WS: [id number] ULTRASOUND SOFT TISSUES RIGHT neck. HISTORY: R22.1 - Localized swelling, mass and lump, neck COMPARISON: None available. TECHNIQUE: 2-D and color Doppler imaging is submitted. Ultrasound is directed to the RIGHT neck as per the patient. The parotid gland is normal size. There is a small lymph node within the parotid gland which correlates with the palpable abnormality. There is no increased vascularity. Lymph node measures 1.2 x 0.7 x 0.6 cm. No adjacent edema or fluid. US/US soft tissue head neck [id number] IMPRESSION: Palpable nodule in the RIGHT neck corresponds to an intraparotid lymph node.
== END 2022-03-05 10:58 | disposition home or self-care (01) ==
LOC: RAD 10:59
PROVIDERS: PCP Family Medicine; Visit Provider Family Medicine
DX: R22.1 Localized swelling, mass and lump, neck (principal)
CPT/HCPCS: 76536

== ENCOUNTER 2022-04-22 09:54 | Outpatient (CLI) | payer MEDICARE, SELFPAY | END 2022-04-22 09:55 | disposition home or self-care (01) | PROVIDERS: PCP Family Medicine; Visit Provider Urology | DX: C61 Malignant neoplasm of prostate (principal); N40.1 Benign prostatic hyperplasia with lower urinary tract symptoms | CPT/HCPCS: 36415; 51798; 81003; 84153; 99214 ==

== ENCOUNTER 2022-05-02 11:48 | Outpatient (CLI) | payer MEDICARE, SELFPAY ==
--- NOTE | 2022-05-02 12:30 | CT_ITS ---
WS: [id number] CT NECK NONCONTRAST. HISTORY: R22.1 - Localized swelling, mass and lump, neck, right-sided neck mass. Nonpalpable. TECHNIQUE: Contiguous 5 mm axial images are performed through the neck without intravenous contrast. Sagittal and coronal reformats are also submitted. All CT scans at [facility] use at least on e of these dose optimization techniques: automated exposure control; mA and/or kV adjustment per anibal ent size (includes targeted exams where dose is matched to clinical indication); or iterative reconst ruction. CONTRAST: CONTRAST: None DLP: 300.38 mGy.cm COMPARISON: None available. Nasopharynx, oropharynx, hypopharynx and larynx are unremarkable. No soft tissue masses. Torus tubarius and fossa of Rosenmuller and parapharyngeal fat are normal. No significant lymphadenopathy is identified. No right-sided neck mass is identified. Partial thyroidectomy. LEFT thyroid has been removed. The RIGHT thyroid appears normal. The nonenhanc ed imaging of the parotid and submandibular glands is negative. Moderate increase in the cervical lordosis. Degenerative spondylitic changes in the mid to lower cerv ical spine. Visualized portions of the skull base demonstrate no abnormalities. Orbits and globes are within norm al limits. No soft tissue masses. Visualized paranasal sinuses and mastoid air cells are normal. Lung apices are clear. CT/CT neck wo con [id number] IMPRESSION: 1. No cervical chain lymphadenopathy identified. 2. No right-sided neck mass is identified. 3. LEFT thyroidectomy.
== END 2022-05-02 11:49 | disposition home or self-care (01) ==
LOC: RAD 11:52
PROVIDERS: PCP Family Medicine; Visit Provider Family Medicine
DX: R22.1 Localized swelling, mass and lump, neck (principal)
CPT/HCPCS: 70490

== ENCOUNTER → 2022-05-12 11:02 | Outpatient (BNVA) | payer MEDICARE, SELFPAY | PROVIDERS: PCP Family Medicine; Visit Provider Internal Medicine Cardiovascular Disease | DX: I25.10 Atherosclerotic heart disease of native coronary artery without angina pectoris (principal); I13.0 Hypertensive heart and chronic kidney disease with heart failure and stage 1 through stage 4 chronic kidney disease, or unspecified chronic kidney disease; N18.30 Chronic kidney disease, stage 3 unspecified; I50.9 Heart failure, unspecified; I35.1 Nonrheumatic aortic (valve) insufficiency; G47.33 Obstructive sleep apnea (adult) (pediatric) | CPT/HCPCS: 99214 ==

== ENCOUNTER 2022-06-03 09:45 | Outpatient (CLI) | payer MEDICARE, SELFPAY ==
--- NOTE | 2022-06-03 10:00 | FL_ITS ---
WS: [id number] RI barium swallow [id number] REASON FOR EXAM: DYSPHAGIA/LOCALIZED SWELLING,MASS LUMP, NECK FLUOROSCOPY TIME: 2min [id number] # OF SPOT FILMS: 15 Patient was evaluated in the upright and prone SIMONS and supine LPO positions. Swallowing of barium was evaluated fluoroscopically and with spot films from the oropharynx to the gastric fundus. FINDINGS: In the oral/hypopharynx region there is noted to be penetration of barium over the epiglottis without audie aspiration. The cervical esophagus demonstrated no intrinsic or extrinsic compression and no diverticulum was bridget ntified. In the thoracic esophagus there was a breakdown of the primary peristaltic wave into tertiary contrac tions with significant retention of barium and retrograde reflux. In the distal esophagus there was a moderate size sliding hiatal hernia with prominent Schatzki ring, 14 mm. Gastroesophageal reflux was not elicited. FL/FL barium swallow [id number] IMPRESSION: Due to the penetration of contrast over the epiglottis a formal modified barium swallow supervised by the speech therapy department is recommended to determin e aspiration risk. Esophageal dysmotility as above. Hiatal hernia as above.
== END 2022-06-03 09:46 | disposition home or self-care (01) ==
PROVIDERS: PCP Family Medicine; Visit Provider Specialist
DX: R13.10 Dysphagia, unspecified (principal); R22.1 Localized swelling, mass and lump, neck; K44.9 Diaphragmatic hernia without obstruction or gangrene
CPT/HCPCS: 74220

== ENCOUNTER → 2022-06-15 11:07 | Outpatient (BNVA) | payer MEDICARE, SELFPAY | PROVIDERS: PCP Family Medicine; Visit Provider Emergency Medicine | DX: U07.1 COVID-19 (principal) | CPT/HCPCS: 87426 ==

== ENCOUNTER → 2022-07-08 10:10 | Outpatient (BNVA) | payer MEDICARE, SELFPAY | PROVIDERS: PCP Family Medicine; Visit Provider Internal Medicine | DX: N18.31 Chronic kidney disease, stage 3a (principal) | CPT/HCPCS: 80069; 82043; 82306; 82542; 85025 ==

== ENCOUNTER 2022-07-29 08:03 | Outpatient (CLI) | payer MEDICARE, SELFPAY | END 2022-07-29 08:04 | disposition home or self-care (01) | PROVIDERS: PCP Family Medicine; Visit Provider Urology | DX: C61 Malignant neoplasm of prostate (principal); N40.1 Benign prostatic hyperplasia with lower urinary tract symptoms | CPT/HCPCS: 36415; 84153; 99213 ==

== ENCOUNTER 2022-07-31 10:35 | Outpatient (CLI) | payer MEDICARE, SELFPAY ==
--- NOTE | 2022-07-31 10:55 | FL_ITS ---
WS: [id number] Modified barium swallow, 07/31/2022 Clinical Data: Other dysphagia Comparison: None. Fluoroscopy time: 1min [id number] # of spot films: 0 Findings: The patient displayed good oral function. On swallowing there is minimal penetration on one episode b ut no aspiration. There was minimal residue on the vallecula which did clear. FL/FL barium swallow modifd [id number] Impression: 1. Good oral function. 2. One episode of minimal penetration without aspiration. 3. Minimal vallecular residue which didn't clear.
== END 2022-07-31 10:36 | disposition home or self-care (01) ==
PROVIDERS: PCP Family Medicine; Visit Provider Specialist
DX: R13.19 Other dysphagia (principal)
CPT/HCPCS: 74230; 92611

== ENCOUNTER → 2022-08-05 09:19 | Outpatient (BNVA) | payer MEDICARE, SELFPAY | PROVIDERS: PCP Family Medicine; Visit Provider Family Medicine | DX: I10 Essential (primary) hypertension (principal); R06.02 Shortness of breath; I50.9 Heart failure, unspecified; F41.1 Generalized anxiety disorder; E03.9 Hypothyroidism, unspecified; M19.90 Unspecified osteoarthritis, unspecified site; G25.0 Essential tremor; I25.10 Atherosclerotic heart disease of native coronary artery without angina pectoris; N20.1 Calculus of ureter; E87.1 Hypo-osmolality and hyponatremia; K21.00 Gastro-esophageal reflux disease with esophagitis, without bleeding; N18.31 Chronic kidney disease, stage 3a; N40.1 Benign prostatic hyperplasia with lower urinary tract symptoms; R22.1 Localized swelling, mass and lump, neck | CPT/HCPCS: 80053; 80061; 84443 ==

== ENCOUNTER → 2022-08-14 10:53 | Outpatient (BNVA) | payer MEDICARE, SELFPAY | PROVIDERS: PCP Family Medicine; Visit Provider Internal Medicine Cardiovascular Disease | DX: I13.0 Hypertensive heart and chronic kidney disease with heart failure and stage 1 through stage 4 chronic kidney disease, or unspecified chronic kidney disease (principal); N18.30 Chronic kidney disease, stage 3 unspecified; I50.9 Heart failure, unspecified; I25.10 Atherosclerotic heart disease of native coronary artery without angina pectoris; I35.1 Nonrheumatic aortic (valve) insufficiency | CPT/HCPCS: 99214 ==

== ENCOUNTER → 2022-09-27 10:52 | Outpatient (BNVA) | payer MEDICARE, SELFPAY | PROVIDERS: PCP Family Medicine; Visit Provider Emergency Medicine | DX: Z20.822 Contact with and (suspected) exposure to COVID-19 (principal); R69 Illness, unspecified | CPT/HCPCS: 87426 ==

== ENCOUNTER → 2023-01-19 10:57 | Outpatient (BNVA) | payer MEDICARE, SELFPAY | PROVIDERS: PCP Family Medicine; Referring Provider Family Medicine; Visit Provider Student in an Organized Health Care Education/Training Program | DX: M65.332 Trigger finger, left middle finger (principal) | CPT/HCPCS: 73130; 99204 ==

== ENCOUNTER → 2023-01-20 09:21 | Outpatient (BNVA) | payer MEDICARE, SELFPAY | PROVIDERS: PCP Family Medicine; Visit Provider Family Medicine | DX: N18.31 Chronic kidney disease, stage 3a (principal); E03.9 Hypothyroidism, unspecified; I12.9 Hypertensive chronic kidney disease with stage 1 through stage 4 chronic kidney disease, or unspecified chronic kidney disease; C61 Malignant neoplasm of prostate | CPT/HCPCS: 80048; 80069; 82043; 82310; 83970; 84153; 84443 ==

== ENCOUNTER → 2023-02-03 08:03 | Outpatient (BNVA) | payer MEDICARE, SELFPAY | PROVIDERS: PCP Family Medicine; Visit Provider Urology | DX: C61 Malignant neoplasm of prostate (principal); N40.1 Benign prostatic hyperplasia with lower urinary tract symptoms | CPT/HCPCS: 51798; 81003; 99213 ==

== ENCOUNTER 2023-02-10 06:34 | Day surgery (SDC) | payer MEDICARE, SELFPAY ==
[2023-02-09 11:37] VITALS: BMI 28.5
[2023-02-10 06:55] VITALS: BP 161/95; PULSE 67; RESP 18; TEMP 37.1; O2SAT 95
--- NOTE | 2023-02-10 07:02 | W.PM.OPSUD ---
Surgery/Procedure H&P Update DATE OF PROCEDURE: February 10, 2023 DATE H&P PERFORMED: 01/19/23 CHANGES TO PREVIOUS DOCUMENTATION: None PREOP DIAGNOSIS: Left middle finger trigger PRIMARY INDICATION FOR PROCEDURE: Left middle finger trigger PLANNED PROCEDURE: Operation Date: 02/10/23 08:15 Proposed Procedures p left middle finger release [id number],M65.332(Left) - Edgardo Cagle DO
[2023-02-10] MEDS: sodium chloride 0.9% 1,000 ML 30 ML IV (07:05)
[2023-02-10] MEDS: ketorolac 30 mg/mL INJ IVP (07:06)
[2023-02-10] MEDS: acetaminophen 1,000 MG/100 ML PIGGYBACK 400 MG IV (07:07)
--- NOTE | 2023-02-10 07:32 | ANES.PREANE2 ---
Pre-Anesthetic Assessment Height/Weight: Height 1.73 m Weight 85.275 kg Temp Pulse Resp BP Pulse Ox O2 Del Method 98.7 F 67 18 161/95 95 02/10/23 06:55 02/10/23 06:55 02/10/23 06:55 02/10/23 06:55 02/10/23 06:55 02/10/23 06:55 Preop Diagnosis: Left middle finger trigger Operation Date: 02/10/23 08:15 Proposed Procedures p left middle finger release 21448,M65.332(Left) - Edgardo Worcester, DO Familial anesthetic complications: none Was Beta Sienna taken within 24 hours: Yes Was Clonidine taken within 24 hours: N/A Last intake: Intake Last Liquid Date 02/09/23 Last Liquid Time 20:00 Last Solid Date 02/09/23 Last Solid Time 20:00 Social No alcohol and No tobacco Exam alert, oriented x 3 and regular rate & rhythm Airway Submandibular: within normal limits Cervical ROM: within normal limits Mallampati: Class II Dentition: false Pulmonary Chronic Obstructive Pulmonary Disease CV/HEM Coronary Artery Disease, Congestive Heart Failure, Hypertension and Murmur (AI) CONCLUSIONS ?1. Normal left ventricular size, systolic function and wall ?thicknes. Left ventricular ejection fraction is estimated at 65 ?%.? There is mild hypokinesis of mid anteroseptal, apical ?septal, mid to apical anterior cerna.? Normal diastolic ?function. ?2. Normal right ventricular size and systolic function. ?3. Trace aortic valve regurgitation. ?4. Normal pulmonary artery pressure. ?5. When compared to previous echocardiogram dated 01/17/2020, ?there seems to be new regional wall motion abnormality. ?Gabriella Mike MD ?(Electronically Signed) ?Final Date:? ? ? 07 January 2022 Metabolic Hyperlipidemia and Thyroid Disease Neuropsych Anxiety and Depression Anesthetic Plan ASA status: 3 Anesthesia: MAC Medications/Allergies Home Medications Medication Instructions Recorded Confirmed Last Taken Type fluticasone propionate 50 1 spray intranasal BID 11/23/19 02/10/23 02/09/23 History mcg/actuation nasal spray,suspension (Allergy Relief (fluticasone)) lactobacillus combination no.8 3 3,000 mmu cells PO DAILY 01/04/20 02/10/23 02/09/23 History billion cell capsule (Adult Probiotic) triamcinolone acetonide 0.1 % 1 applic topical BID #454 grams 01/10/21 02/10/23 01/20/23 Rx topical cream nitroglycerin 0.4 mg sublingual See Rx Instructions .Route 11/18/21 02/10/23 Unknown Rx tablet .COMPLEX #25 ea aspirin 81 mg tablet,delayed 81 mg PO DAILY 02/11/22 02/10/23 02/09/23 History release (Adult Low Dose Aspirin) tamsulosin 0.4 mg capsule 0.4 mg PO QDAY 90 days #90 caps 08/05/22 02/10/23 02/09/23 Rx cholecalciferol (vitamin D3) 25 25 mcg PO DAILY 08/14/22 02/10/23 02/09/23 History mcg (1,000 unit) capsule potassium chloride 20 mEq 20 meq PO DAILY #90 tabs 08/14/22 02/10/23 02/09/23 Rx tablet,extended release albuterol sulfate 90 mcg/actuation 2 puff inhalation Q6H PRN 01/20/23 02/10/23 02/09/23 Rx aerosol inhaler (ProAir HFA) shortness of breath or wheezing #8.5 grams furosemide 40 mg tablet 60 mg PO QAM #135 tabs 01/20/23 02/10/23 02/09/23 Rx hydroxyzine HCl 25 mg tablet 25 mg PO BID PRN anxiety 90 days 01/20/23 02/10/23 02/09/23 Rx #180 tabs levothyroxine 25 mcg tablet 25 mcg PO DAILY 90 days #90 tabs 01/20/23 02/10/23 02/10/23 Rx omeprazole 40 mg capsule,delayed 40 mg PO DAILY 90 days #90 caps 01/20/23 02/10/23 02/09/23 Rx release propranolol 10 mg tablet 10 mg PO TID 90 days #270 tabs 01/20/23 02/10/23 02/10/23 Rx tizanidine 2 mg tablet 2 mg PO .at bedtime PRN muscle 01/20/23 02/10/23 02/09/23 Rx spasticity 90 days #90 tabs amlodipine 5 mg tablet 5 mg PO DAILY 02/09/23 02/10/23 02/09/23 History meloxicam 15 mg tablet 15 mg PO PRN PRN Pain 02/09/23 02/10/23 Unknown History pravastatin 10 mg tablet 10 mg PO DAILY 02/09/23 02/10/23 02/09/23 History Allergies Allergy/AdvReac Type Severity Reaction Status Date / Time hydrochlorothiazide Allergy Unknown Verified 02/09/23 11:33 lisinopril Allergy Unknown Verified 02/09/23 11:33 Penicillins Allergy ALGY-Hives Verified 02/09/23 11:33 Current Medications Generic Name Dose Route Start Last Admin Trade Name Freq PRN Reason Stop Dose Admin Sodium Chloride 1,000 mls @ 30 mls/hr 02/10/23 06:45 02/10/23 07:05 Sodium Chloride 0.9% IV 02/11/23 06:44 30 mls/hr .Q24H MANNIE Administration PFSH Anesthesia Medical History Abnormal nuclear stress test Aortic regurgitation Arthritis BPH loc w urin obs/LUTS CAD (coronary artery disease) STATIN intolerance CHF (congestive heart failure), NYHA class III Chronic kidney disease, stage 3 (moderate) We will refer to nephrology if worsens. Constipation, chronic COPD (chronic obstructive pulmonary disease) COVID-19 Esophageal stricture Essential tremor MAURICIO (generalized anxiety disorder) Off fluoxetine due to low Na Hyponatremia Hypothyroidism DIAN (obstructive sleep apnea) Prostate cancer Restless leg syndrome Statin intolerance Itchy RASH Surgical History H/O esophagogastroduodenoscopy (05/02/21) History of colonoscopy 2016 S/P cataract surgery S/P dilatation of esophageal stricture (05/02/21) S/P inguinal hernia repair S/P partial thyroidectomy S/P rotator cuff repair S/P sinus surgery Family History Father , at age 81 Cancer PROSTATE Mother , at age 87 Chronic kidney disease (CKD) Cirrhosis of liver Heart failure Social History Smoking and tobacco status: never smoked Second hand smoke exposure: No Smoking risk assessment/counseling performed?: No Alcohol intake: never Desire information about alcohol rehabilitation?: No Counseling given: No Desire information about substance/drug rehabilitation?: No Counseling given: No Caregiver/support person: Yes Lives independently: No Household members: spouse Marital status: Current occupational status: retired Current gender identity: Male Data Anesthesia Cardiac Studies: Echocardiogram 01/02/22 Echocardiogram Ultrasound 01/17/20 Sestamibi Stress Test (Cardiology) 10/08/21
[2023-02-10] MEDS: clindamycin 600 MG/50 ML PREMIX 100 MG IV (07:56)
[2023-02-10 08:34] VITALS: BP 133/76; PULSE 69; RESP 20; TEMP 36.6; O2SAT 98
[2023-02-10 08:39] VITALS: BP 126/73; PULSE 64; RESP 18; O2SAT 97
[2023-02-10 08:44] VITALS: BP 122/70; PULSE 63; RESP 18; TEMP 36.5; O2SAT 97
[2023-02-10 08:50] VITALS: BP 122/71; PULSE 63; RESP 18; TEMP 36.5; O2SAT 97
--- NOTE | 2023-02-10 08:51 | PM.OP2 ---
Brief Operative Note Date of procedure: 02/10/23 Pre-op diagnosis: Left middle finger trigger Post-op diagnosis: same Procedure Done: Left middle finger trigger release Surgeon: Edgardo Cagle Estimated blood loss (mL): 1 Complications: None Post-op Plan: Patient taken to PACU in stable condition recovering well. Will receive appropriate discharge structure as well as pain medication postoperatively. We will follow-up with me in the office in 2 weeks. Weightbearing as tolerated to the left hand. All questions answered. Contact the office for any questions or concerns Condition: stable Disposition: same day Coding Level of Care Code Acute Code for Sylvesterg Terrell
--- NOTE | 2023-02-10 08:52 | PM.PACU ---
PACU note Narrative: Patient taken to PACU in stable condition recovering well. Dressings on in place clean dry and intact. Patient has decreased sensation left middle finger secondary to digital block. Able to make a fist. Fingertip warm well-perfused brisk capillary refill less than 2 seconds. Exam: awake Disposition: discharged
--- NOTE | 2023-02-10 08:53 | PM.OP ---
Operative Report Date of procedure: February 10, 2023 Pre-op diagnosis: Preop Diagnosis Left middle finger trigger Post-op diagnosis: same Procedure done: Left middle finger trigger release Surgeon: Edgardo Cagle DO Estimated blood loss: 1 mL 6 minutes IV fluids: 400 mL Complications: None Condition: stable Disposition: same day Brief History: Patient been seen evaluate in the outpatient setting 82-year-old male with a left middle finger trigger consistent with preoperative diagnosis. He is mechanically locking and catching we talked about treatment options far as nonoperative and operative intervention. At this point time through shared decision making he would like to proceed with a left middle finger trigger release surgery we talked about the risk benefits complication alternatives to each treatment option understanding his risk for surgery he agrees to proceed with surgical intervention. All questions answered. Consent reviewed and signed with patient. Procedure: Patient presented to the preoperative holding area consent was reviewed and signed with patient. Correct extremity/digit was then marked. Patient was then seen evaluated by Anesthesia Department once cleared for surgery was taken back to the operative suite. Transported on the OR table in supine position all bony prominences well-padded patient was appropriate secured to bed. Armboard was applied to the left arm. He then underwent anesthesia per the anesthesia part once appropriately anesthetized nonsterile tourniquet applied to the left upper arm. Patient's left upper extremity was then prepped and draped in standard orthopedic fashion. Final timeout performed. Patient received appropriate preoperative antibiotics. Under sterile aseptic technique a local digital block was then performed for planned incision site of the left middle finger. Esmarch tourniquet was used exsanguinate the left upper extremity. Tourniquet was insufflated to 250 mmHg. A standard oblique incision was made in patient's distal palmar crease sharp scalpel incision was made strictly through just skin. I then switched to Littler dissection scissors and dissected and spread longitudinally in the planes of the neurovascular bundle and longitudinally in line with the flexor tendon sheath. Once soft tissue mobilized over the tendon I then placed Kasdan retractors to protect the neurovascular bundle and identified the proximal portion of the A1 naomie. This was then incised with a sharp scalpel and then switched to dissection scissors to complete the A1 naomie release distally. I then had patient awakened from anesthetic. I utilized a rag nail to pull the tendon through the incision site and inspected each of the FDS and FDP tendons which were healthy and no evidence of tear or rupture. Patient was then had actively make a fist and no evidence of triggering was noted this completed the procedure tourniquet was deflated hemostasis satisfactory bipolar electrocautery. I then thoroughly irrigated the incision site and then closed the incision with interrupted nylon suture. Incision dressed with Xeroform 4 x 4's fluffs Curlex and an Luigi wrap. Patient was then taken to PACU in stable condition. Disposition: Patient taken PACU in stable condition recovering well dressings on in place clean dry and intact. Patient receive appropriate discharge structure as well as pain medication postoperatively. Patient follow-up with me in the office in 2 weeks. Patient understands agrees with current plan. Questions answered.
[2023-02-10 09:07] VITALS: BP 126/74; PULSE 62; RESP 18; O2SAT 97
--- NOTE | 2023-02-10 16:21 | ANE.PACU2 ---
Inpatient post-anesthesia follow up: Airway intact: Yes Vital signs: Temperature 97.7 F Pulse Rate 62 Respiratory Rate 18 Blood Pressure 126/74 Pulse Oximetry 97 Oxygen Delivery Me thod Room Air Oxygen Flow Rate Fraction of Inspir ed Oxygen Hydration adequate: Yes Nausea and vomiting: No Pain level: 2 Mental status: Baseline
== END 2023-02-10 09:21 | disposition home or self-care (01) ==
PROVIDERS: PCP Family Medicine; Visit Provider Student in an Organized Health Care Education/Training Program
PROC: (CPT 26055; principal; 2023-02-10 08:05)
DX: M65.332 Trigger finger, left middle finger (principal); J44.9 Chronic obstructive pulmonary disease, unspecified; I25.10 Atherosclerotic heart disease of native coronary artery without angina pectoris; I13.0 Hypertensive heart and chronic kidney disease with heart failure and stage 1 through stage 4 chronic kidney disease, or unspecified chronic kidney disease; N18.30 Chronic kidney disease, stage 3 unspecified; I50.9 Heart failure, unspecified; Z79.82 Long term (current) use of aspirin; N40.1 Benign prostatic hyperplasia with lower urinary tract symptoms; N13.8 Other obstructive and reflux uropathy
CPT/HCPCS: 26055; J0131; J1885; J2704; J2795; J3010; J3490; J7030

== ENCOUNTER → 2023-02-23 08:44 | Outpatient (BNVA) | payer MEDICARE, SELFPAY | PROVIDERS: PCP Family Medicine; Visit Provider Student in an Organized Health Care Education/Training Program | DX: M65.332 Trigger finger, left middle finger (principal) | CPT/HCPCS: 99024 ==

== ENCOUNTER → 2023-05-07 10:38 | Outpatient (BNVA) | payer MEDICARE, SELFPAY | PROVIDERS: PCP Family Medicine; Visit Provider Internal Medicine Cardiovascular Disease | DX: I13.0 Hypertensive heart and chronic kidney disease with heart failure and stage 1 through stage 4 chronic kidney disease, or unspecified chronic kidney disease (principal); I50.9 Heart failure, unspecified; N18.30 Chronic kidney disease, stage 3 unspecified; I25.10 Atherosclerotic heart disease of native coronary artery without angina pectoris; I35.1 Nonrheumatic aortic (valve) insufficiency; G47.33 Obstructive sleep apnea (adult) (pediatric); L57.0 Actinic keratosis; L82.1 Other seborrheic keratosis; Z80.8 Family history of malignant neoplasm of other organs or systems; L57.8 Other skin changes due to chronic exposure to nonionizing radiation; L21.8 Other seborrheic dermatitis; L81.4 Other melanin hyperpigmentation; D22.5 Melanocytic nevi of trunk; Z71.89 Other specified counseling; L85.3 Xerosis cutis | CPT/HCPCS: 17000; 17003; 99214 ==

== ENCOUNTER → 2023-05-27 10:33 | Outpatient (BNVA) | payer MEDICARE, SELFPAY | PROVIDERS: PCP Family Medicine; Visit Provider Family Medicine | DX: S69.91XA Unspecified injury of right wrist, hand and finger(s), initial encounter (principal); X58.XXXA Exposure to other specified factors, initial encounter | CPT/HCPCS: 73130 ==

== ENCOUNTER → 2023-06-21 12:23 | Outpatient (BNVA) | payer MEDICARE, SELFPAY | PROVIDERS: PCP Family Medicine; Visit Provider Nurse Practitioner Family | DX: R50.9 Fever, unspecified (principal); Z20.822 Contact with and (suspected) exposure to COVID-19 | CPT/HCPCS: 87426 ==

== ENCOUNTER → 2023-07-21 08:56 | Outpatient (BNVA) | payer MEDICARE, SELFPAY | PROVIDERS: PCP Family Medicine; Referring Provider Family Medicine; Visit Provider Family Medicine | DX: E03.9 Hypothyroidism, unspecified (principal); N18.30 Chronic kidney disease, stage 3 unspecified | CPT/HCPCS: 80053; 80061; 80069; 82043; 82542; 84443; 85025 ==

== ENCOUNTER → 2023-12-14 10:44 | Outpatient (BNVA) | payer MEDICARE, SELFPAY | PROVIDERS: PCP Family Medicine; Visit Provider Family Medicine | DX: J06.9 Acute upper respiratory infection, unspecified (principal); J98.8 Other specified respiratory disorders; B97.89 Other viral agents as the cause of diseases classified elsewhere; Z29.11 Encounter for prophylactic immunotherapy for respiratory syncytial virus (RSV); I25.10 Atherosclerotic heart disease of native coronary artery without angina pectoris; I50.9 Heart failure, unspecified; J20.8 Acute bronchitis due to other specified organisms; B96.89 Other specified bacterial agents as the cause of diseases classified elsewhere | CPT/HCPCS: 87400; 87426 ==

== ENCOUNTER → 2024-01-18 09:35 | Outpatient (BNVA) | payer MEDICARE, SELFPAY | PROVIDERS: PCP Family Medicine; Referring Provider Internal Medicine; Visit Provider Internal Medicine | DX: N18.31 Chronic kidney disease, stage 3a (principal) | CPT/HCPCS: 80069; 82043; 82310; 83970; 85025 ==

== ENCOUNTER → 2024-02-08 10:09 | Outpatient (BNVA) | payer MEDICARE, SELFPAY | PROVIDERS: PCP Family Medicine; Visit Provider Family Medicine | DX: E03.9 Hypothyroidism, unspecified (principal); C61 Malignant neoplasm of prostate; I10 Essential (primary) hypertension; I50.9 Heart failure, unspecified; Z12.5 Encounter for screening for malignant neoplasm of prostate; M54.12 Radiculopathy, cervical region; F41.1 Generalized anxiety disorder; K21.9 Gastro-esophageal reflux disease without esophagitis; G25.0 Essential tremor; N20.1 Calculus of ureter; E87.1 Hypo-osmolality and hyponatremia; J41.0 Simple chronic bronchitis; N18.31 Chronic kidney disease, stage 3a; I25.10 Atherosclerotic heart disease of native coronary artery without angina pectoris; R07.89 Other chest pain; K21.00 Gastro-esophageal reflux disease with esophagitis, without bleeding; N40.1 Benign prostatic hyperplasia with lower urinary tract symptoms | CPT/HCPCS: 83735; 83880; 84153; 84443 ==

== ENCOUNTER → 2024-02-15 10:19 | Outpatient (BNVA) | payer MEDICARE, SELFPAY | PROVIDERS: PCP Family Medicine; Visit Provider Nurse Practitioner Family | DX: I13.0 Hypertensive heart and chronic kidney disease with heart failure and stage 1 through stage 4 chronic kidney disease, or unspecified chronic kidney disease (principal); N18.30 Chronic kidney disease, stage 3 unspecified; I50.9 Heart failure, unspecified; I25.10 Atherosclerotic heart disease of native coronary artery without angina pectoris | CPT/HCPCS: 99214 ==

== ENCOUNTER → 2024-05-05 09:38 | Outpatient (BNVA) | payer MEDICARE, SELFPAY | PROVIDERS: PCP Family Medicine; Visit Provider Nurse Practitioner Family | DX: L57.0 Actinic keratosis (principal); L82.1 Other seborrheic keratosis; D22.5 Melanocytic nevi of trunk; L81.4 Other melanin hyperpigmentation; L85.3 Xerosis cutis; Z80.8 Family history of malignant neoplasm of other organs or systems | CPT/HCPCS: 17000; 99213 ==